=== PATIENT | male | born 1995 | race Caucasian/White ===

== ENCOUNTER 2024-01-01 11:40 | Outpatient (CLI) | payer OTHER, SELFPAY | END 2024-01-01 11:41 | disposition home or self-care (01) | LOC: LKVREF 11:45 | PROVIDERS: PCP Family Medicine; Visit Provider Family Medicine | DX: Z00.00 Encounter for general adult medical examination without abnormal findings (principal); F41.0 Panic disorder [episodic paroxysmal anxiety]; F41.8 Other specified anxiety disorders; R53.83 Other fatigue | CPT/HCPCS: 80053; 80061; 84443 ==